=== PATIENT | male | born 1940 | race Caucasian/White ===

== ENCOUNTER 2016-06-24 11:30 | Day surgery (SDC) | payer MEDICARE ==
[2016-06-19 10:58] VITALS: BMI 26.4
[~2016-06-24 11:30] MED LIST: DEXAMETHASONE SOD PHOSPHATE 10 MG/ML 1 ML VIAL IV ONE; HEPARIN SODIUM,PORCINE 5,000 UNIT/ML 1 ML VIAL SQ ONE; HYDROmorphone 1 MG/ML 1 ML SYRINGE IVP PRN; LACTATED RINGERS 1,000 ML IV SCH; ONDANSETRON 4 MG/2 ML VIAL IVP ONE; ceFAZolin 2 GM in SODIUM CHLORIDE 0.9% 100 ML IVPB ONE
[2016-06-24 12:31] LABS: Basophils % (A) 1 %; CH 33.2; CHCM 34.4; Eosinophils # (A) 0.1 k/uL (0-0.7); Eosinophils % (A) 2 %; HCT 45.9 % (39.0-53.0); HDW 2.51; HGB 15.6 gm/dL (13.0-17.5); Luc # (Auto) 0.18; Luc % (Auto) 3; Lymphocytes # (A) 1.5 k/uL (1.0-4.8); Lymphocytes % (A) 27 %; MCH 32.8 pg (25.0-35.0); MCHC 33.9 g/dL (31.0-37.0); MCV 96.7 fL (80.0-100.0); Monocytes # (A) 0.4 k/uL (0-1.0); Monocytes % (A) 7 %; Neutrophils # (A) 3.2 k/uL (1.3-7.7); Neutrophils % (A) 60 %; RBC 4.75 m/uL (4.30-5.90); WBC 5.4 k/uL (3.8-10.6); WBC (Perox) 5.21
[2016-06-24 12:39] LABS: Potassium 4.2 mmol/L (3.5-5.1)
[2016-06-24 12:40] LABS: INR 1.1 (<1.1); Partial Thromboplastin Time 24.7 sec (22.0-30.0); Prothrombin Time 11.3 sec (9.0-12.0)
[2016-06-24] MEDS ORDERED: PROPOFOL 10 MG/ML 20 ML VIAL IV ONE (13:12)
[2016-06-24] MEDS ORDERED: SUCCINYLCHOLINE CHLORIDE 100 MG/5 ML SYR IV ONE (13:12)
[2016-06-24] MEDS ORDERED: ROCURONIUM BROMIDE 10 MG/ML 10 ML VIAL IV ONE (13:12)
[2016-06-24] MEDS ORDERED: fentaNYL (PF) 50 MCG/ML 2 ML AMP ONE (13:12)
[2016-06-24] MEDS ORDERED: HYDROmorphone (PF) 1 MG/ML ONE (13:12)
[2016-06-24] MEDS ORDERED: GLYCOPYRROLATE 0.2 MG/ML 2 ML VIAL ONE (13:12)
[2016-06-24] MEDS ORDERED: NEOSTIGMINE 1 MG/ML 10 ML VIAL ONE (13:12)
[2016-06-24] MEDS ORDERED: LIDOCAINE 1% INJ 10MG/ML (20 ML MDV) ONE (13:12)
[2016-06-24] MEDS ORDERED: MIDAZOLAM 2 MG/2 ML VIAL ONE (13:12)
[2016-06-24] MEDS ORDERED: BUPIVACAIN-EPI 0.25%-1:200,000 30 ML VIAL SQ ONE (13:58)
[2016-06-24 15:23] VITALS: TEMP 97.8
[2016-06-24] MEDS ORDERED: LACTATED RINGERS 1,000 ML IV ONE (15:28)
[2016-06-24] MEDS ORDERED: HYDROcodone/APAP 5-325MG 1 EACH TAB PO ONE (16:31)
[2016-06-24 16:33] VITALS: RESP 18
--- NOTE | 2016-06-24 17:32 | P.OP ---
Date of Procedure: 06/24/16 Preoperative Diagnosis: right inguinal hernia Postoperative Diagnosis: Direct right inguinal hernia Procedure(s) Performed: Robot assisted laparoscopic repair of inguinal hernia with mesh Implants: 16 x 12 cm Bard progrip mesh Anesthesia: TATA Surgeon: Khanh Rider Estimated Blood Loss (ml): 7 Pathology: none sent Condition: stable Disposition: PACU Operative Findings: Right direct inguinal hernia Description of Procedure: Informed consent was obtained patient and then The patient was brought to the operating room and placed in supine position. General anesthesia with endotracheal intubation was performed as per anesthesia team. A samayoa catheter was inserted under sterile aseptic precautions. Chlorhexidine was used to prep the skin followed by application of sterile drapes . He was placed in the lithotomy position. A timeout was performed to verify correct patient, correct procedure and correct side. Patient was confirmed to receive perioperative IV antibiotics, subcutaneous heparin 5000 units and bilateral SCDs were placed. The left upper quadrant point was identified and a stab incision was made. Veress needle was introduced and placement was confirmed with the help of the drop test. The abdomen was then insufflated to 15 mmHg. Once that was done 5 mm port was introduced into the left upper quadrant using the Optiview technique after which a 12 mm port was placed in the supraumbilical position and a 8 mm port in the right lower quadrant and then after that the another 8 mm port was palced int he left lower quadrant. The robot was then docked with the central camera port and the 2 side working ports. The 30 degree up scope was introduced and the abdomen down through the 12 mm port site. The cardiere and scissors were brought in throuhg the 8 mm port sides and the median umbilical fold was retracted laterally towards the left side a small incision was made at the junction of the umbilical fold and the peritoneum and carried all the way laterally thus creating a small plane in the preperitoneal space. This did this was further dissected with the help of blunt dissection using gentle stroking maneuvers all the way down to Huseyin ligament medially and laterally we went inferior exposing the vessels inferiorly. There was a large direct hernia sac was completely dissected freed extended over the suprapubic region. There was significant amount of blood vessels coursing in the base of this sac and therefore initial attempt to close it were abandoned. Because of the large size of the defect decision was made to use a 12 x 16 Bard Pro warehouse administrator mesh was introduced in the abdominal cavity with the lower part above the level of the peritoneal fold was then unfolded so that it covered all the orifices and covered the Huseyin's ligament medially after which the peritoneal flaps were closed with the help of running 2 0 v lock suture. All old the peritoneum was closed with the help of the remaining 0V lock as well as the Vicryl suture that incorporated the everted sac. once that was done procedure was completed all needles were removed under direct vision and then the camera was removed and a laparoscope was introduced and the 12 mm port site was closed with the help of a Ken Ocasio the direct vision after which gas was turned off abdomen was thoroughly desufflated skins was closed with the help of 4-0 Monocryl and Dermabond. Samayoa catheter was removed patient was extubated and taken to recovery room in stable condition patient tolerated the procedure well there were no complications
[2016-06-24 18:03] VITALS: BP 143/92; PULSE 68
== END 2016-06-24 19:10 | disposition home or self-care (01) ==
LOC: OR 11:30
PROVIDERS: ATTEND Surgery
DX: K40.90 Unilateral inguinal hernia, without obstruction or gangrene, not specified as recurrent (principal); I25.10 Atherosclerotic heart disease of native coronary artery without angina pectoris; E78.2 Mixed hyperlipidemia; Z79.82 Long term (current) use of aspirin; Z79.899 Other long term (current) drug therapy
CPT/HCPCS: 80051; 85025; 85610; 85730; 49650; C1781; J2250; J1644; J1100; J2710; J0690; J2405; J2001; J3010; J1170; J0330; J2704

== ENCOUNTER → 2018-03-17 | Outpatient (CLI) | payer MEDICARE ==
--- NOTE | 2018-03-17 15:00 | US ---
EXAMINATION TYPE: US kidneys/renal and bladder DATE OF EXAM: 03/17/2018 COMPARISON: CT 2016 CLINICAL HISTORY: R93.89 Abnormal findings on diagnostic imaging. Right kidney lesion seen on CT in 2 016 EXAM MEASUREMENTS: Right Kidney: 9.5 x 6.0 x 5.7 cm Left Kidney: 9.3 x 4.6 x 4.6 cm Right Kidney: 3.6 x 3.6 x 3.4cm exophytic cystic area inferior pole Left Kidney: limited by overlying bowel, no hydronephrosis or definite lesions seen at this time Bladder: wnl Bilateral Jets seen: yes There is no evidence for hydronephrosis at this point in time. No nephrolithiasis is seen on ultraso und. There is redemonstration of partially exophytic simple appearing 3.5 cm cyst lower pole level me dially right kidney. There is no significant change from prior CT. Prominent parapelvic cyst centrall y in left kidney on CT are less well seen on ultrasound. Left kidney is poorly visualized on ultrasou nd images saved. No gross hydronephrosis is present. The urinary bladder is anechoic. Bilateral uret eral jets are seen. IMPRESSION: Stable 3.5 cm simple appearing cyst right kidney mid to lower pole level. There was tiny 2 mm calculu s right kidney upper to mid pole level CT axial image 23 that is not clearly seen on ultrasound today .
== END | disposition home or self-care (01) ==
LOC: RADUSWWP 14:04
PROVIDERS: ATTEND Family Medicine
DX: N28.1 Cyst of kidney, acquired (principal); N20.0 Calculus of kidney
CPT/HCPCS: 76770